=== PATIENT | female | born 1940 | race Caucasian/White ===

== ENCOUNTER 2017-03-14 19:14 | Observation (INO) | payer MEDICARE, BC ==
[2017-03-14] MEDS ORDERED: ACETAMINOPHEN TAB 325 MG TAB PO STA (19:56)
[2017-03-14] MEDS ORDERED: MECLIZINE 12.5 MG TAB PO STA (19:56)
[2017-03-14 20:01] LABS: Basophils % (A) 0 %; CH 31.1; CHCM 34.2; Eosinophils % (A) 1 %; HCT 43.9 % (34.0-46.0); HDW 2.55; HGB 14.8 gm/dL (11.4-16.0); Luc # (Auto) 0.09; Luc % (Auto) 1; Lymphocytes # (A) 1.5 k/uL (1.0-4.8); Lymphocytes % (A) 19 %; MCH 30.7 pg (25.0-35.0); MCHC 33.7 g/dL (31.0-37.0); MCV 91.3 fL (80.0-100.0); Mean Platelet Volume 6.2; Monocytes # (A) 0.2 k/uL (0-1.0); Monocytes % (A) 3 %; Neutrophils # (A) 5.9 k/uL (1.3-7.7); Neutrophils % (A) 76 %; RBC 4.82 m/uL (3.80-5.40); RDW 12.8 % (11.5-15.5); WBC 7.7 k/uL (3.8-10.6); WBC (Perox) 7.14
--- NOTE | 2017-03-14 20:09 | ED ---
Dizziness HPI - General Chief Complaint: Dizziness Stated Complaint: dizziness Time Seen by Provider: 03/14/17 19:23 Source: patient Mode of arrival: EMS Limitations: no limitations - History of Present Illness Initial Comments: This patient is a 76-year-old woman with history of long-standing problem with what she is calling dizziness. She states that she has problem with feeling off balance and nauseated. She has had years of what she refers to as motion sickness as she goes onto a boat or if she rides in the backseat of a car. She states that yesterday this was provoked by having her eyes dilated for an exam. She went home and basically has had symptoms since that time which though a little bit better and worse throughout the day have not resolved. She states that she was not able to sleep well overnight. She was not able to eat much today. Patient initially presented to [facility], had initial workup there which is reportedly negative, and then transferred here to have neurology consultation. MD Complaint: dizziness -: year(s) Timing: intermittent Description: off-balance, nausea History of Same: Yes History of Trauma: No Severity: moderate Improves With: remaining still Worsens With: position Associated Symptoms: denies other symptoms - Related Data Home Medications Medication Instructions Recorded Confirmed Cholecalciferol [Vitamin D3] 1,000 unit PO DAILY 03/14/17 03/14/17 Cinnamon Bark [Cinnamon] 500 mg PO DAILY 03/14/17 03/14/17 L.acidoph,Paracasei, B.lactis 1 cap PO DAILY 03/14/17 03/14/17 [Probiotic] Lisinopril [Zestril] 20 mg PO DAILY 03/14/17 03/14/17 Multivitamins, Thera [Multivitamin 1 tab PO DAILY 03/14/17 03/14/17 (formulary)] [place]-3/Dha/Epa/Fish Oil [Fish Oil 1 cap PO DAILY 03/14/17 03/14/17 1,000 mg Softgel] Turmeric Root Extract [Turmeric] 500 mg PO DAILY 03/14/17 03/14/17 Allergies Allergy/AdvReac Type Severity Reaction Status Date / Time codeine AdvReac Nausea & Verified 03/14/17 20:06 Vomiting Review of Systems ROS Statement: Those systems with pertinent positive or pertinent negative responses have been documented in the HPI. ROS Other: All systems not noted in ROS Statement are negative. Constitutional: Denies: fever, chills, weakness Eyes: Denies: vision change Respiratory: Denies: cough, dyspnea Cardiovascular: Denies: chest pain, palpitations, orthopnea, syncope Gastrointestinal: Reports: nausea. Denies: abdominal pain, vomiting, diarrhea Genitourinary: Denies: dysuria, hematuria Musculoskeletal: Denies: back pain Skin: Denies: rash Neurological: Denies: headache, weakness, numbness Past Medical History Past Medical History: Hypertension Additional Past Medical History / Comment(s): colostomy- reversed History of Any Multi-Drug Resistant Organisms: None Reported Past Surgical History: Back Surgery, Bowel Resection Past Psychological History: Anxiety Smoking Status: Never smoker Past Alcohol Use History: None Reported Past Drug Use History: None Reported General Exam General appearance: alert, in no apparent distress Head exam: Present: atraumatic, normocephalic Eye exam: Present: normal appearance, PERRL, EOMI. Absent: scleral icterus, conjunctival injection, nystagmus ENT exam: Present: normal oropharynx Neck exam: Present: normal inspection, full ROM, other (No bruit). Absent: tenderness, meningismus Respiratory exam: Present: normal lung sounds bilaterally. Absent: respiratory distress, wheezes, rales, rhonchi Cardiovascular Exam: Present: regular rate, normal rhythm, normal heart sounds. Absent: systolic murmur, diastolic murmur, rubs, gallop GI/Abdominal exam: Present: soft. Absent: distended, tenderness, guarding, rebound, mass Extremities exam: Present: normal inspection, normal capillary refill. Absent: pedal edema, calf tenderness Back exam: Present: normal inspection. Absent: CVA tenderness (R), CVA tenderness (L) Neurological exam: Present: alert, oriented X3, CN II-XII intact. Absent: motor sensory deficit Skin exam: Present: warm, dry, intact, normal color. Absent: rash Course Vital Signs 03/14/17 03/14/17 19:21 20:31 Temperature 97.9 F Pulse Rate 72 67 Respiratory 18 18 Rate Blood Pressure 186/85 O2 Sat by Pulse 97 98 Oximetry EKG Findings - EKG Comments: EKG Findings:: There is Q wave in V2 suggesting possible old anterior infarct. - EKG Results: EKG: interpreted by MARLEED, sinus rhythm (Rate 69 bpm), normal axis, normal QRS, normal ST/T, no acute changes - Dysrhythmias: Sinus rhythms and dysrhythmias: sinus rhythm Medical Decision Making - Lab Data Result diagrams: 03/14/17 19:42 03/14/17 19:42 Lab Results 03/14/17 03/14/17 03/14/17 Range/Units 19:42 19:42 19:42 WBC 7.7 (3.8-10.6) k/uL RBC 4.82 (3.80-5.40) m/uL Hgb 14.8 (11.4-16.0) gm/dL Hct 43.9 (34.0-46.0) % MCV 91.3 (80.0-100.0) fL MCH 30.7 (25.0-35.0) pg MCHC 33.7 (31.0-37.0) g/dL RDW 12.8 (11.5-15.5) % Plt Count 237 (150-450) k/uL Neutrophils % 76 % Lymphocytes % 19 % Monocytes % 3 % Eosinophils % 1 % Basophils % 0 % Neutrophils # 5.9 (1.3-7.7) k/uL Lymphocytes # 1.5 (1.0-4.8) k/uL Monocytes # 0.2 (0-1.0) k/uL Eosinophils # 0.0 (0-0.7) k/uL Basophils # 0.0 (0-0.2) k/uL Sodium 136 L (137-145) mmol/L Potassium 4.2 (3.5-5.1) mmol/L Chloride 101 (98-107) mmol/L Carbon Dioxide 24 (22-30) mmol/L Anion Gap 11 mmol/L BUN 7 (7-17) mg/dL Creatinine 0.60 (0.52-1.04) mg/dL Est GFR (MDRD) Af Amer >60 (>60 ml/min/1.73 sqM) Est GFR (MDRD) Non-Af >60 (>60 ml/min/1.73 sqM) Glucose 137 H (74-99) mg/dL Plasma Lactic Acid Jimbo 1.1 (0.7-2.0) mmol/L Calcium 9.0 (8.4-10.2) mg/dL Total Bilirubin 0.6 (0.2-1.3) mg/dL AST 26 (14-36) U/L ALT 45 (9-52) U/L Alkaline Phosphatase 54 (38-126) U/L Total Protein 6.4 (6.3-8.2) g/dL Albumin 3.9 (3.5-5.0) g/dL Urine Color Urine Appearance (Clear) Urine pH (5.0-8.0) Ur Specific [place] (1.001-1.035) Urine Protein (Negative) Urine Glucose (UA) (Negative) Urine Ketones (Negative) Urine Blood (Negative) Urine Nitrite (Negative) Urine Bilirubin (Negative) Urine Urobilinogen (<2.0) mg/dL Ur Leukocyte Esterase (Negative) Urine RBC (0-5) /hpf Urine WBC (0-5) /hpf Ur Squamous Epith Cells (0-4) /hpf Amorphous Sediment (None) /hpf Urine Bacteria (None) /hpf 03/14/17 Range/Units 19:42 WBC (3.8-10.6) k/uL RBC (3.80-5.40) m/uL Hgb (11.4-16.0) gm/dL Hct (34.0-46.0) % MCV (80.0-100.0) fL MCH (25.0-35.0) pg MCHC (31.0-37.0) g/dL RDW (11.5-15.5) % Plt Count (150-450) k/uL Neutrophils % % Lymphocytes % % Monocytes % % Eosinophils % % Basophils % % Neutrophils # (1.3-7.7) k/uL Lymphocytes # (1.0-4.8) k/uL Monocytes # (0-1.0) k/uL Eosinophils # (0-0.7) k/uL Basophils # (0-0.2) k/uL Sodium (137-145) mmol/L Potassium (3.5-5.1) mmol/L Chloride (98-107) mmol/L Carbon Dioxide (22-30) mmol/L Anion Gap mmol/L BUN (7-17) mg/dL Creatinine (0.52-1.04) mg/dL Est GFR (MDRD) Af Amer (>60 ml/min/1.73 sqM) Est GFR (MDRD) Non-Af (>60 ml/min/1.73 sqM) Glucose (74-99) mg/dL Plasma Lactic Acid Jimbo (0.7-2.0) mmol/L Calcium (8.4-10.2) mg/dL Total Bilirubin (0.2-1.3) mg/dL AST (14-36) U/L ALT (9-52) U/L Alkaline Phosphatase (38-126) U/L Total Protein (6.3-8.2) g/dL Albumin (3.5-5.0) g/dL Urine Color Light Yellow Urine Appearance Clear (Clear) Urine pH 7.0 (5.0-8.0) Ur Specific [place] 1.004 (1.001-1.035) Urine Protein Negative (Negative) Urine Glucose (UA) Negative (Negative) Urine Ketones Negative (Negative) Urine Blood Negative (Negative) Urine Nitrite Negative (Negative) Urine Bilirubin Negative (Negative) Urine Urobilinogen <2.0 (<2.0) mg/dL Ur Leukocyte Esterase Trace H (Negative) Urine RBC 1 (0-5) /hpf Urine WBC 3 (0-5) /hpf Ur Squamous Epith Cells 1 (0-4) /hpf Amorphous Sediment Rare H (None) /hpf Urine Bacteria Occasional H (None) /hpf Disposition Clinical Impression: Vertigo Disposition[facility] Condition: Fair Referrals: Nonstaff,Physician [Primary Care Provider] - 1-2 days
[2017-03-14 20:11] LABS: ALT 45 U/L (9-52); AST 26 U/L (14-36); Alkaline Phosphatase 54 U/L (38-126); Anion Gap 11 mmol/L; Blood Urea Nitrogen 7 mg/dL (7-17); Carbon Dioxide 24 mmol/L (22-30); Chloride 101 mmol/L (98-107); Glucose 137 mg/dL (74-99); Non-African American GFR(MDRD) >60 (>60 ml/min/1.73 sqM); Potassium 4.2 mmol/L (3.5-5.1); Sodium 136 mmol/L (137-145); Total Bilirubin 0.6 mg/dL (0.2-1.3); Total Protein 6.4 g/dL (6.3-8.2)
[2017-03-14 20:15] LABS: Amorphous Sediment,Urine Rare /hpf; Appearance,Urine Clear (Clear); Bacteria,Urine Occasional /hpf; Bilirubin,Urine Negative (Negative); Glucose,Urine (UA) Negative (Negative); Ketones,Urine Negative (Negative); Leukocyte Esterase,Urine Trace (Negative); Nitrite,Urine Negative (Negative); Particle Count 4405; Protein,Urine Negative (Negative); RBC,Urine 1 /hpf (0-5); Specific Gravity,Urine 1.004 (1.001-1.035); Squamous Epithelial Cell,Urine 1 /hpf (0-4); UA Billing (MACRO vs. MICRO) MICRO; Urobilinogen,Urine <2.0 mg/dL (<2.0); WBC,Urine 3 /hpf (0-5)
[2017-03-14] MEDS ORDERED: ONDANSETRON 4 MG/2 ML VIAL IVP PRN (20:31)
[2017-03-14] MEDS ORDERED: NALOXONE 0.4 MG/ML 1 ML VIAL IV PRN (20:31)
--- NOTE | 2017-03-14 20:38 | XR ---
EXAMINATION TYPE: XR chest 1V portable DATE OF EXAM: 03/14/2017 COMPARISON: NONE INDICATION: Dizziness and headache TECHNIQUE: Single frontal view of the chest is obtained. FINDINGS: The heart size is normal. The pulmonary vasculature is normal. The lungs are clear. IMPRESSION: 1. No acute pulmonary process.
[2017-03-14] MEDS ORDERED: SODIUM CHLORIDE 0.9% 1,000 ML IV SCH (20:45)
[2017-03-14] MEDS: FAMOTIDINE 20 MG TAB PO SCH (21:52)
[2017-03-14] MEDS ORDERED: MELATONIN 3 MG TABLET PO PRN (22:46)
[2017-03-14 23:00] VITALS: BMI 26.1
[2017-03-15 08:02] VITALS: BP 130/72; PULSE 67; RESP 16; TEMP 97.8
[2017-03-15] MEDS ORDERED: LISINOPRIL 20 MG TAB PO SCH ×2 (09:00→21:00)
[2017-03-15] MEDS ORDERED: PSYLLIUM HUSK 100% 6 GM PACKET PO SCH (09:00)
[2017-03-15] MEDS ORDERED: LACTOBACILLUS ACIDOPH & BULGAR 1 EACH PACKET PO SCH (09:00)
[2017-03-15] MEDS: FAMOTIDINE 20 MG TAB PO SCH (09:11)
--- NOTE | 2017-03-15 10:49 | US ---
EXAMINATION TYPE: US carotid duplex BILAT DATE OF EXAM: 03/15/2017 COMPARISON: NONE CLINICAL HISTORY: vertigo x 2 days. dizziness, HTN- on meds. No hx of TIA. Not on any blood thinner s. EXAM MEASUREMENTS: RIGHT: Peak Systolic Velocity (PSV) cm/sec ----- Right CCA: 79.0 ----- Right ICA: 77.9 ----- Right ECA: 117.3 ICA/CCA ratio: 1.0 RIGHT: End Diastole cm/sec ----- Right CCA: 12.0 ----- Right ICA: 19.7 ----- Right ECA: 7.2 LEFT: Peak Systolic Velocity (PSV) cm/sec ----- Left CCA: 82.8 ----- Left ICA: 93.0 ----- Left ECA: 101.8 ICA/CCA ratio: 1.1 LEFT: End Diastole cm/sec ----- Left CCA: 15.3 ----- Left ICA: 24.8 ----- Left ECA: 7.3 VERTEBRALS (direction of flow): Right Vertebral: Antegrade Left Vertebral: Antegrade Bilateral wall thickening. No elevated velocities or significant stenosis. Plaque seen in left bulb. Incidental finding - multiple nodules seen in left thyroid. Largest - 2.0 x 1.1 x 0.6 cm. Left th yroid echogenic focus with shadowing - 0.5 cm IMPRESSION: 1. Bilateral plaque without hemodynamically significant stenosis. Criteria for Assigning % of Stenosis / Diameter reduction (Estimation based on the indirect measurements of the internal carotid artery velocities (ICA PSV). 1. Normal (no stenosis)=ICA PSV < 125 cm/s: ratio < 2.0: ICA EDV<40 cm/s. 2. Less than 50% stenosis=ICA PSV < 125 cm/s: ratio < 2.0: ICA EDV<40 cm/s. 3. 50 to 69% stenosis=ICA PSV of 125 to 230 cm/s: ration 2.0 ? 4.0: ICA EDV 40-100 cm/s. 4. Greater than 70% stenosis to near occlusion= ICA PSV > 230 cm/s: ratio > 4.0: ICA EDV > 100 cm/s. 5. Near occlusion= ICA PSV velocities may be low or undetectable: variable ratio and ICA EDV. 6. Total occlusion=unable to detect flow.
[2017-03-15] MEDS ORDERED: CHOLECALCIFEROL 1,000 UNIT TAB PO SCH (12:00)
--- NOTE | 2017-03-15 12:05 | P.CNNES ---
History of Present Illness Consult date: 03/15/17 History of Present Illness: The patient is a 76-year-old right-handed white female who reports that on she went inside doctor had her eyes dilated and when she went home she felt some motion sickness-type dizziness. She felt nauseated but no vertigo. The patient gives a history of motion sickness which she calls dizziness which has occurred off and on over the years. Sometimes it is occurred while in a car on a boat and sometimes spontaneously but this never lasted as long as yesterday so she went to the emergency room at [facility] had a CAT scan of the brain which was negative and she was transferred to [facility]. Her today. Denies any other neurologic complaints such as blurred vision double vision focal weakness focal numbness or speech disturbance. She has been walking to and fro the bathroom and in the hallway today. Review of Systems Constitutional: Denies chills, Denies fever Eyes: denies blurred vision, denies pain Ears, nose, mouth and throat: Denies headache, Denies sore throat Cardiovascular: Denies chest pain, Denies shortness of breath Respiratory: Denies cough Musculoskeletal: Denies myalgias Neurological: Reports as per HPI Psychiatric: Denies anxiety, Denies depression Past Medical History Past Medical History: Hypertension Additional Past Medical History / Comment(s): colostomy- reversed , diverticulosis, borderline diabetic, diet controlled, bowel rupture with colostomy for 3 months and reversed History of Any Multi-Drug Resistant Organisms: None Reported Past Surgical History: Back Surgery, Bowel Resection Past Psychological History: Anxiety Smoking Status: Never smoker Past Alcohol Use History: None Reported Past Drug Use History: None Reported Medications and Allergies Home Medications Medication Instructions Recorded Confirmed Type Cholecalciferol [Vitamin D3] 1,000 unit PO DAILY 03/14/17 03/15/17 History Cinnamon Bark [Cinnamon] 500 mg PO DAILY 03/14/17 03/15/17 History L.acidoph,Paracasei, B.lactis 1 cap PO DAILY 03/14/17 03/15/17 History [Probiotic] Lisinopril [Zestril] 20 mg PO HS 03/14/17 03/15/17 History Multivitamins, Thera [Multivitamin 1 tab PO DAILY 03/14/17 03/15/17 History (formulary)] [place]-3/Dha/Epa/Fish Oil [Fish Oil 1 cap PO DAILY 03/14/17 03/15/17 History 1,000 mg Softgel] Turmeric Root Extract [Turmeric] 500 mg PO DAILY 03/14/17 03/15/17 History Psyllium Husk (with Sugar) 1 tbsp PO DAILY 03/15/17 03/15/17 History [Metamucil Powder] Allergies Allergy/AdvReac Type Severity Reaction Status Date / Time codeine AdvReac Nausea & Verified 03/14/17 20:06 Vomiting Physical Examination - Vital Signs Vital Signs: Vital Signs Temp Pulse Pulse Resp BP BP Pulse Ox 03/15/17 07:00 97.8 F 67 16 130/72 96 03/14/17 21:45 98.3 F 66 20 142/73 95 03/14/17 20:58 98.0 F 68 18 163/84 96 03/14/17 20:55 98.0 F 68 18 163/84 96 03/14/17 20:31 67 18 98 03/14/17 19:21 97.9 F 72 18 186/85 97 Intake and Output 03/14/17 03/15/17 03/15/17 22:59 06:59 14:59 Intake Total 400 100 200 Balance 400 100 200 Intake: Oral 400 100 200 Other: Voiding Method Toilet # Voids 1 Weight 66.8 kg - Constitutional General appearance: average body habitus - EENT EENT: PERRL, hearing intact, vision intact - Respiratory Respiratory: lungs clear - Cardiovascular Cardiovascular: regular rate - Neurologic Mental status she was awake alert and oriented chance of questions appropriately there was no aphasia or dysarthria. Cranial nerve examination: PERRL, VFF, V1/V2/V3 grossly intact, face symmetric, tongue midline Speech examination: intact Detailed motor examination: grossly full strength in all extremities Reflexes: 2+: knee - Psychiatric Psychiatric: mood/affect appropriate Results - Laboratory Findings CBC and BMP: 03/14/17 19:42 03/14/17 19:42 Abnormal Lab Findings: Abnormal Labs 03/14/17 03/14/17 19:42 19:42 Sodium 136 L Glucose 137 H Ur Leukocyte Esterase Trace H Amorphous Sediment Rare H Urine Bacteria Occasional H Assessment and Plan (1) Disequilibrium Status: Acute Code(s): R42 - DIZZINESS AND GIDDINESS Plan: The patient is a 76-year-old woman with chronic history of dizziness. She describes dizziness as a sense of nausea not feeling right. There is no vertigo. There is no ataxia. The patient describes a sense of car sickness when she states dizziness. She felt that way yesterday after she went to the eye doctor and had her eyes dilated. She feels better today. She denied any vertigo or any other neurologic complaint. The Antivert helped resolve her symptoms recommend further evaluation which can be done outpatient including MRI of the brain and ENT evaluation. She has had a carotid ultrasound which did not show any significant stenosis. She has had a CT of the brain at [facility] which was reported negative. She can continue on antevert 12.5 mg twice a day when necessary
--- NOTE | 2017-03-15 17:26 | HP ---
DATE OF ADMISSION: This dictation is both H&P and Discharge Summary. A 76-year-old female came in after eye dilatation. Patient had vertigo symptoms and patient was mostly nauseous. Patient denied any abdominal pain. All of these symptoms resolved at this point of time. Patient apparently appears to have benign positional vertigo which was frustrated by dilatation of eyes and patient has a CAT scan which was negative. Carotid Doppler was done which was negative. The patient was evaluated by Neurology. No further intervention at this point of time. Patient will be discharged today. I cannot rule out gastroesophageal reflux disease because of which we will her 14 days of empiric proton pump inhibitor and will also provided her with a script of meclizine on an as-needed basis for benign positional vertigo. Patient denied any hearing problems. Denied any fullness in the ears, and it does not appear to have any cerebellopontine angle tumors on the CT. REVIEW OF SYSTEMS: CONSTITUTIONAL: No fever, no malaise, no fatigue. HEENT: No recent visual problems or hearing problems. Denied any sore throat. CARDIOVASCULAR: No chest pain, orthopnea, PND, no palpitations, no syncope. PULMONARY: No shortness of breath, no cough, no hemoptysis. GASTROINTESTINAL: No diarrhea, no nausea, no vomiting, no abdominal pain. Normoactive bowel sounds. NEUROLOGICAL: As described in HPI. HEMATOLOGICAL: Denies any bleeding or petechiae. GENITOURINARY: Denies any burning micturition, frequency, or urgency. MUSCULOSKELETAL/RHEUMATOLOGICAL: Denies any joint pain, swelling, or any muscle pain. ENDOCRINE: Denies any polyuria or polydipsia. The rest of the 14 point review of systems is negative. PAST MEDICAL HISTORY: Hypertension, bowel resection surgery in the past. Denied any smoking, alcohol abuse or any drug abuse. FAMILY HISTORY: Denied any family history of hypertension, diabetes mellitus or coronary artery disease. HOME MEDICATIONS: 1. Cholecalciferol. 2. Cinnamon Bark. 3. Lisinopril. 4. Multivitamin. 5. [place]-3 fatty acids. 6. Turmeric. 7. Psyllium. Allergic to CODEINE. PHYSICAL EXAMINATION: Temperature 97.8, pulse of 69, respiratory rate of 16, blood pressure is 130/72, saturating at 96% on room air. GENERAL: The patient is alert and oriented x3, not in any acute distress. Well developed, well nourished. HEENT: Pupils are round and equally reacting to light. EOMI. No scleral icterus. No conjunctival pallor. Normocephalic, atraumatic. No pharyngeal erythema. No thyromegaly. CARDIOVASCULAR: S1 and S2 present. No murmurs, rubs, or gallops. PULMONARY: Chest is clear to auscultation, no wheezing or crackles. ABDOMEN: Soft, nontender, nondistended, normoactive bowel sounds. No palpable organomegaly. MUSCULOSKELETAL: No joint swelling or deformity. EXTREMITIES: No cyanosis, clubbing, or pedal edema. NEUROLOGICAL: Gross neurological examination did not reveal any focal deficits. SKIN: No rashes. LABORATORY DATA: CBC, CMP, essentially within normal limits. The rest of the work-up as mentioned above. ASSESSMENT AND PLAN: 1. Dizziness and possible vertiginous symptoms, which resolved at this point of time. 2. Probably benign positional vertigo, although symptoms are resolved. 3. Nausea, cannot rule out gastroesophageal reflux disease, empiric proton pump inhibitor as mentioned above. 4. Hypertension. Patient can continue her lisinopril. Patient will be discharged today to follow with her primary care physician in 3 to 7 days. Activity as tolerated. Cardiac diet. This dictation is both H&P and discharge summary.
== END 2017-03-15 14:24 | disposition home or self-care (01) ==
LOC: EC 19:14 → 4MS4W 20:31
PROVIDERS: ADMIT Internal Medicine; ATTEND Internal Medicine
DX: R42 Dizziness and giddiness (principal); R11.0 Nausea; I10 Essential (primary) hypertension; R73.03 Prediabetes; Z79.899 Other long term (current) drug therapy; Z88.5 Allergy status to narcotic agent
CPT/HCPCS: 99285; 96374; 36415; 93005; 80053; 83605; 85025; 81001; 71010; 93880; G0378 ×2; J2405